=== PATIENT | female | born 1965 | race Asian ===

== ENCOUNTER 2021-12-16 07:05 | Day surgery (SDC) | payer MEDICAID, SELFPAY ==
[~2021-12-16] VITALS: Ht 157.5 cm; Wt 72.1 kg
[2021-12-16] MEDS ORDERED: fentaNYL CITRATE/PF 100 MCG/2 ML AMP ONE (09:04)
[2021-12-16] MEDS ORDERED: MIDAZOLAM HCL 5 MG/5 ML VIAL ONE (09:04)
[2021-12-16 14:42] VITALS: BP_SYST 148
== END 2021-12-16 11:10 | disposition home or self-care (01) ==
LOC: SDS 07:05 → SMU 07:10 → SDS 11:10
PROVIDERS: ATTEND Internal Medicine
DX: Z12.11 Encounter for screening for malignant neoplasm of colon (principal); K63.5 Polyp of colon; K52.9 Noninfective gastroenteritis and colitis, unspecified; K64.8 Other hemorrhoids; Z79.899 Other long term (current) drug therapy; Z20.822 Contact with and (suspected) exposure to COVID-19
CPT/HCPCS: 36415; 45380; 82962; 87426; 88305; 99152; G0378; J2250; J3010